=== PATIENT | female | born 1990 | race Caucasian/White ===

== ENCOUNTER 2022-10-04 08:40 | Outpatient (CLI) | payer BC, MEDICAID, SELFPAY | END 2022-10-04 08:41 | disposition home or self-care (01) | PROVIDERS: PCP Family Medicine; Visit Provider Family Medicine | DX: Z00.00 Encounter for general adult medical examination without abnormal findings (principal); E66.01 Morbid (severe) obesity due to excess calories; F33.9 Major depressive disorder, recurrent, unspecified; Z13.6 Encounter for screening for cardiovascular disorders | CPT/HCPCS: 80053; 80061 ==

== ENCOUNTER 2024-11-09 07:49 | Day surgery (SDC) | payer BC, SELFPAY ==
[2024-11-09] VITALS (10 sets, daily range): BP systolic 145–152; BP diastolic 80–100; PULSE 73–89; RESP 16–20; TEMP 36.2–36.3; O2SAT 98–100; BMI 60.9
[2024-11-09] MEDS: ETHYL CHLORIDE 1 APPLICATION 1 APPLIC TOPICAL (09:05)
[2024-11-09] MEDS: BUPIVACAINE 0.5% 30 ML INJECTION (09:05)
[2024-11-09] MEDS: LIDOCAINE 1% MDV INJECTION (09:05)
--- NOTE | 2024-11-09 10:18 | P.ORPRC_ITS ---
Procedure Note Date of procedure: 11/09/24 Procedure: PREOPERATIVE DIAGNOSIS: 1. Left index finger middle phalangeal ulnar aspect benign mass POSTOPERATIVE DIAGNOSIS: 1. Left index finger middle phalangeal ulnar aspect benign mass PROCEDURE: 1. Left index finger middle phalangeal ulnar aspect benign mass open excision SURGEON: Matt Wright MD. [employer]: Jeb Cleaning PA-C - Of note, an bilingual legal assistant was critical for this case to aid in patient positioning, tissue retraction, limb manipulation/positioning, patient safety, & closure. ANESTHESIA: Local anesthetic (50:50 mixture of 1% lidocaine plain and 0.5% marcaine plain)-8 mL total EBL: 1 mL IMPLANTS: None TOURNIQUET: 10 minute digital tourni-cot SPECIMENS: Left index finger mass COMPLICATIONS: None evident INDICATIONS: The patient is a pleasant 34yo female who has experienced left index finger benign mass development of the course of a number of months if not longer. It has now become symptomatic/painful intermittently. Particularly when she is writing or holding firm objects. Nonoperative management has been tried but unsuccessful. Given the failure of nonoperative management, and how this affects daily life, surgery was recommended. DESCRIPTION OF PROCEDURE: Following a thorough discussion of risks, benefits, and alternatives consent was obtained and the operative extremity was marked. The patient was brought to the operating room and placed supine on the operating table. No antibiotics were administered as this was planned to be a local case only. Proper time-out was performed identifying proper patient, site, and procedure. The operative extremity was prepped and draped in the appropriate sterile fashion using ChloraPrep. The limb was exsanguinated and the tourniquet inflated. An oblique incision was made overlying the mass on the slightly ulnar aspect of the middle phalangeal region left index finger similar to a Jonatan type incision. However, the incision was centered just over the mass. Sharp incision through the skin, and blunt dissection through subcutaneous tissue allowed us to protect crossing neurologic structures. The mass appeared to be somewhat hemorrhagic. It was removed and sent for permanent pathology. Further dissection showed some other atypical tissue just slightly deep, this was also excised without difficulty. At this stage, the tourniquet was deflated and hemostasis achieved. Closure was performed with 4-O nylon. Soft dressings were applied, and the patient was awoken/transferred to the recovery room in stable condition. PLAN: 1. Encourage elevation of the operative extremity. 2. Range of motion of the operative extremity/digits as tolerated. 3. Ibuprofen, acetaminophen and/or oxycodone as needed for pain. 4. Follow up with PA visit in 12-16 days for wound check and suture removal.
== END 2024-11-09 10:30 | disposition home or self-care (01) ==
LOC: OR 07:49
PROVIDERS: PCP Family Medicine; Visit Provider Orthopaedic Surgery Sports Medicine
PROC: (CPT 26111; principal; 2024-11-09 08:45)
DX: R22.32 Localized swelling, mass and lump, left upper limb (principal)
CPT/HCPCS: 26111; 88304; J2003; J0665

== ENCOUNTER 2024-12-08 15:05 | Outpatient (CLI) | payer BC, SELFPAY | END 2024-12-08 15:06 | disposition home or self-care (01) | LOC: NFLDREF 12-10 11:13 | PROVIDERS: PCP Family Medicine; Referring Provider Family Medicine; Visit Provider Family Medicine | DX: N30.00 Acute cystitis without hematuria (principal); B96.20 Unspecified Escherichia coli [E. coli] as the cause of diseases classified elsewhere | CPT/HCPCS: 87086 ==